=== PATIENT | male | born 1960 | race African-American/Black ===

== ENCOUNTER 2019-11-24 23:58 | Emergency (ER) | payer SELFPAY ==
[~2019-11-24 23:58] MED LIST: ACHD5005 PO; AMOX1TAB12; ASCO500T20 PO; HYDR-1231 PO; LISI-552; SULF-222 PO; SULF1TAB38 PO
--- NOTE | 2019-11-25 00:15 | NUR ---
REGISTRATION STAFF ADVISE ED STAFF THAT THE PT CAME TO THE WINDOW AND STATED HE WOULD CARE FOR HIS INJURY AT HOME
== END 2019-11-25 00:15 | disposition left against medical advice (07) ==
LOC: EDUNIT# 23:58 → ER 11-25 00:02
DX: S69.91XA Unspecified injury of right wrist, hand and finger(s), initial encounter (principal); X58.XXXA Exposure to other specified factors, initial encounter

== ENCOUNTER 2019-11-25 10:44 | Emergency (ER) | payer SELFPAY ==
[~2019-11-25] VITALS: Ht 170.1 cm; Wt 62.5 kg
[2019-11-25] MEDS ORDERED: LIDOCAINE 1% INJ 20 ML 20 ML VIAL INJ ONE (11:30)
[2019-11-25] MEDS ORDERED: TETANUS,DIPTH,PERTUSS P/F (BOOSTRIX) 0.5 ML VIAL IM ONE (11:30)
--- NOTE | 2019-11-25 12:14 | ED Upper Extremity ---
General Chief Complaint: Laceration Stated Complaint: R HAND LACERATION Nursing Triage Note: AMB TO [employer] CUT R HAND ON GLASS WINDOW. LACERATION Nursing Sepsis Screen: No Definite Risk History of Present Illness Date Seen by Provider: Nov 25, 2019 Time Seen by Provider: 11:15 Initial Comments 59 year old male presents for laceration to his right hand. He was trying to fix a window when it closed onto his right hand. He had immediate pain and laceration. Denies any other injuries. He is unsure of his last tetanus shot. Onset: just prior to arrival Pain/Injury Location: right hand Method of Injury: incised (window fell on hand) Allergies and Home Medications Allergies Coded Allergies: No Known Drug Allergies (Unverified , 06/04/13) Patient Home Medication List Home Medication List Reviewed: Yes Review of Systems Constitutional: no symptoms reported, see HPI Skin: other (laceration right hand) All Other Systems Reviewed Negative Unless Noted: Yes Past Frlsiag-Azihty-Wbfsop Hx Past Med/Social Hx: Reviewed Nursing Past Med/Soc Hx Patient Social History Alcohol Use: Occasionally Uses Recreational Drug Use: No Smoking Status: Current Everyday Smoker Recent Foreign Travel: No Contact w/Someone Who Travel: No Recent Infectious Disease Expo: No Immunizations Up To Date Date of Influenza Vaccine: May 30, 2013 Past Medical History Hypertension Reproductive Disorders: No Family Medical History Cancer 03 MOTHER (breast cancer ) Family history: Hypertension 03 MOTHER Headache 09 SISTER No Family History of: Abdominal aortic aneurysm Austin's disease Alcoholism Aphasia Cancer of colon Cataract Chest pain Congenital heart disease Congestive heart failure Cystic fibrosis Dementia Dysphagia Family history: Allergy Family history: Alzheimer's disease Family history: Arthritis Family history: Asthma Family history: Breast disease Family history: Cardiovascular disease Family history: Coronary thrombosis Family history: Diabetes mellitus Family history: Gastrointestinal disease Family history: Glaucoma Family history: Osteoporosis Family history: Thyroid disorder Hearing loss Heart disease Hereditary disease History of - anemia History of - disorder History of - respiratory disease History of drug abuse Human immunodeficiency virus (HIV) seropositivity Hypercholesterolemia Infertile Kidney disease Malignant neoplasm of lung Myocardial infarction Parkinson's disease Prostate cancer Psychotic disorder Seizure disorder Stroke Tuberculosis Visual impairment Hypertension Physical Exam Vital Signs Vital Signs - First Documented 11/25/19 11:14 Temp 36.9 Pulse 88 Resp 18 B/P (MAP) 116/84 (95) Pulse Ox 98 O2 Delivery Room Air Capillary Refill : Less Than 3 Seconds Height, Weight, BMI Height: 5'7" Weight: 150lbs. 2.0oz. [id number]; 21.00 BMI Method:Stated General Appearance: WD/WN, no apparent distress Cardiovascular: normal peripheral pulses, regular rate, rhythm Respiratory: chest non-tender, lungs clear, normal breath sounds Hand: non-tender, no evidence of injury, normal ROM, Right, laceration (3 cm dorsum of hand, over 1st Metacarpal. No active bleeding. ) Neurologic/Tendon: normal sensation, normal motor functions, normal tendon functions Neurologic/Psychiatric: no motor/sensory deficits, alert, normal mood/affect, oriented x 3 Skin: normal color, warm/dry Procedures/Interventions Wound Location: Upper Extremities (right hand) Wound Length (cm): 3 Wound's Depth, Shape: superficial Wound Explored: clean Irrigated w/ Saline (ccs): 500 Betadine Prep?: Yes Anesthesia: 1% Lidocaine Volume Anesthetic (ccs): 4 Wound Debrided: minimal Suture: Ethlion Suture Size: 4-0 Number of Sutures: 4 Sterile Dressing Applied?: Yes Progress Wound well approximated, sterile dressing applied. Patient tolerated procedure well. Progress/Results/Core Measures Results/Orders My Orders Orders - MILTON RENTERIA Dipht,Pertuss(Acell),Tet Adult (Boostrix (11/25/19 11:30) Lidocaine 1% Inj 20 Ml (Xylocaine 1% Inj (11/25/19 11:30) Hand, Right, 3 Views (11/25/19 12:11) Medications Given in ED Current Medications Medications Dose Ordered Sig/Leslie Route Start Time Stop Time Status Last Admin Dose Admin Diphtheria/ Tetanus/Acell Pertussis 0.5 ml ONCE ONCE IM 11/25/19 11:30 11/25/19 11:31 DC 11/25/19 12:05 0.5 ML Lidocaine HCl 20 ml ONCE ONCE INJ 11/25/19 11:30 11/25/19 11:31 DC 11/25/19 12:05 20 ML Vital Signs/I&O 11/25/19 11/25/19 11:14 13:16 Temp 36.9 36.9 Pulse 88 88 Resp 18 18 B/P (MAP) 116/84 (95) 116/84 (95) Pulse Ox 98 98 O2 Delivery Room Air Blood Pressure Mean: 95 Diagnostic Imaging Diagonstic Imaging: Xray Plain Films/CT/US/NM/MRI: hand Comments NAME: EILEEN BULLARD [facility] REC#: [id number] PT STATUS: REG ER : 1960 PHYSICIAN: MILTON RENTERIA ADMIT DATE: 11/25/19/ER Draft Date of Exam:11/25/19 HAND, RIGHT, 3 VIEWS INDICATION: Right hand injury laceration. Time of exam 12:46 PM Multiple views of the right hand were obtained. Bony structures appear to be intact. No fractures are seen. No definite radiopaque soft tissue foreign body is identified. Metacarpals and phalanges are unremarkable. Carpus is unremarkable. IMPRESSION: No acute abnormality is detected. Dictated on workstation # [id number] Dict: 11/25/19 1302 Trans: 11/25/19 1308 [facility] [id number] Interpreted by: FREDERIC MITCHELL MD Electronically signed by: Reviewed: Reviewed by Me Departure Impression Primary Impression: Laceration of right hand Qualified Codes: S61.411A - Laceration without foreign body of right hand, initial encounter Disposition: HOME, SELF-CARE Condition: Improved Departure-Patient Inst. Decision time for Depature: 12:15 Referrals: [facility] [place] [facility] (PCP/Family) Primary Care Physician Patient Instructions: Laceration Repair With Stitches (DC) Add. Discharge Instructions: Keep the dressing dry and in place for 24 hours, you may re-inforce if needed. Do not submerge the wound in standing water (tub, pool, sink, [place], etc). Leave sutures in place, return to Emergency Dept or your Primary Care Provider in 7-10 days for removal. You may shower, do not have water hit directly over wound. Clean with peroxide after shower, leave open to air when at home, cover with dressing or band-aid when out of the house. Watch for signs of infection: Redness, increased tenderness, warmth, discolored drainage or foul smelling drainage. Return to the emergency department for new, urgent health care problems. All discharge instructions reviewed with patient and/or family. Voiced understanding. MILTON RENTERIA Nov 25, 2019 12:14
--- NOTE | 2019-11-25 13:09 | Diagnostic Imaging Report ---
INDICATION: Right hand injury laceration. Time of exam 12:46 PM Multiple views of the right hand were obtained. Bony structures appear to be intact. No fractures are seen. No definite radiopaque soft tissue foreign body is identified. Metacarpals and phalanges are unremarkable. Carpus is unremarkable. IMPRESSION: No acute abnormality is detected. Dictated by: Dictated on workstation # [id number]
[2019-11-25 13:16] VITALS: BP 116/84
== END 2019-11-25 13:15 | disposition home or self-care (01) ==
LOC: EDUNIT# 10:44 → ER 10:45
DX: S61.411A Laceration without foreign body of right hand, initial encounter (principal); F17.210 Nicotine dependence, cigarettes, uncomplicated; W25.XXXA Contact with sharp glass, initial encounter; Z23 Encounter for immunization
CPT/HCPCS: 12013; 73130; 90715